=== PATIENT | male | born 1955 | race Caucasian/White ===

== ENCOUNTER 2017-09-12 21:12 | Inpatient (IN) | payer MEDICARE, OTHER ==
[2017-09-12 11:40] VITALS: BP 141/74; PULSE 98; RESP 17; TEMP 100.1; O2SAT 99
[2017-09-12] MEDS ORDERED: IOHEXOL 350 MG/ML 10 ML VIAL (for RAD DIAG) IVCONTRAST ONE (21:13)
[2017-09-12 21:32] VITALS: BP 132/73; PULSE 147; RESP 22; TEMP 100; O2SAT 94
[2017-09-12 21:44] VITALS: PULSE 119; TEMP 99
[2017-09-12] MEDS ORDERED: SODIUM CHLOR 0.9% 1000 ML INJ 1,000 ML IV SCH (21:46)
--- NOTE | 2017-09-12 21:53 | PD ---
HPI Chief Complaint: Complaint Time Seen by Provider: 21:46 Travel History International Travel<30 days: No Contact w/Intl Traveler<30days: No Traveled to known affect area: No History of Present Illness HPI This is a 62-year-old male with history of hypertension, primary care physician Dr. Avery, who presents for evaluation of abdominal pain, dysuria, urinary hesitancy, nausea, chills, fevers, myalgias. Symptoms started 3 days ago. He reports generalized crampy abdominal pain, burning sensation when he urinates, maximum temperature 103 at home. He denies any urethral discharge, testicular scrotal pain. He reports that he had constipation but today he had a watery bowel movement. He reports history of prostatitis once in the past. He is circumcised. He denies flank pain. He has no other complaints. PFSH Past Medical History Hypertension: Yes Social History Alcohol Use: No Tobacco Use: No Allergies-Medications (Allergen,Severity, Reaction): Coded Allergies: No Known Allergies (Unverified , 09/12/17) Reported Meds & Prescriptions Reported Meds & Active Scripts Active Review of Systems Except as stated in HPI: all other systems reviewed are Neg Physical Exam Narrative GENERAL: Well-developed well-nourished male in no acute distress SKIN: Warm and dry. HEAD: Atraumatic. Normocephalic. EYES: Pupils equal and round. No scleral icterus. No injection or drainage. ENT: No nasal bleeding or discharge. Mucous membranes pink and moist. NECK: Trachea midline. No JVD. CARDIOVASCULAR: Regular rate and rhythm. No murmur appreciated. RESPIRATORY: No accessory muscle use. Clear to auscultation. Breath sounds equal bilaterally. GASTROINTESTINAL: Abdomen soft, generalized mild tenderness without guarding, tenderness is worse in the lower quadrants.. Hepatic and splenic margins not palpable. examination reveals the testicles which are nontender. Rectal examination does reveal a tender prostate. MUSCULOSKELETAL: No obvious deformities. No edema. NEUROLOGICAL: Awake and alert. No obvious cranial nerve deficits. Motor grossly within normal limits. Normal speech. Data Data Last Documented VS Vital Signs Date Time Temp Pulse Resp B/P (MAP) Pulse Ox O2 Delivery O2 Flow Rate FiO2 09/12/17 21:44 99.0 119 09/12/17 21:32 22 132/73 (92) 94 Orders Orders Complete Blood Count With Diff (09/12/17 21:46) Comprehensive Metabolic Panel (09/12/17 21:46) Lipase (09/12/17 21:46) Urinalysis - C+S If Indicated (09/12/17 21:46) Ct Abd/Pel W Iv Contrast(Rout) (09/12/17 21:46) Iv Access Insert/Monitor (09/12/17 21:46) Sodium Chlor 0.9% 1000 Ml Inj (Ns 1000 M (09/12/17 21:46) Sepsis Workup Initiated (09/12/17 ) Lactic Acid Sepsis Protocol (09/12/17 21:46) Blood Culture (09/12/17 21:46) Ketorolac Inj (Toradol Inj) (09/12/17 22:00) Ondansetron Inj (Zofran Inj) (09/12/17 22:00) Electrocardiogram (09/12/17 ) Urine Culture (09/12/17 21:45) Ceftriaxone Inj (Rocephin Inj) (09/12/17 23:00) Iohexol 350 Inj (Omnipaque 350 Inj) (09/12/17 21:13) Admit Order (Ed Use Only) (09/12/17 23:32) Labs Laboratory Tests Test 09/12/17 21:45 09/12/17 21:55 Urine Color DARK-ORANGE Urine Turbidity HAZY Urine pH 6.0 Urine Specific [place] 1.020 Urine Protein 30 mg/dL Urine Glucose (UA) NEG mg/dL Urine Ketones NEG mg/dL Urine Occult Blood SMALL Urine Nitrite POS Urine Bilirubin NEG Urine Urobilinogen 2.0 MG/DL Urine Leukocyte Esterase LARGE Urine RBC 3 /hpf Urine WBC 130 /hpf Urine Bacteria MANY /hpf Urine Mucus MANY /lpf Microscopic Urinalysis Comment CULTURE INDICATED Chlamydia trachomatis DNA (PCR) NOT DETECTED Neisseria gonorrhoeae DNA (PCR) NOT DETECTED White Blood Count 16.4 TH/MM3 Red Blood Count 5.03 MIL/MM3 Hemoglobin 15.5 GM/DL Hematocrit 45.3 % Mean Corpuscular Volume 90.0 FL Mean Corpuscular Hemoglobin 30.8 PG Mean Corpuscular Hemoglobin Concent 34.2 % Red Cell Distribution Width 13.2 % Platelet Count 184 TH/MM3 Mean Platelet Volume 8.0 FL Neutrophils (%) (Auto) 89.9 % Lymphocytes (%) (Auto) 2.4 % Monocytes (%) (Auto) 7.5 % Eosinophils (%) (Auto) 0.0 % Basophils (%) (Auto) 0.2 % Neutrophils # (Auto) 14.8 TH/MM3 Lymphocytes # (Auto) 0.4 TH/MM3 Monocytes # (Auto) 1.2 TH/MM3 Eosinophils # (Auto) 0.0 TH/MM3 Basophils # (Auto) 0.0 TH/MM3 CBC Comment DIFF FINAL Differential Comment Blood Urea Nitrogen 13 MG/DL Creatinine 1.05 MG/DL Random Glucose 130 MG/DL Total Protein 7.2 GM/DL Albumin 3.6 GM/DL Calcium Level 8.5 MG/DL Alkaline Phosphatase 112 U/L Aspartate Amino Transf (AST/SGOT) 13 U/L Alanine Aminotransferase (ALT/SGPT) 26 U/L Total Bilirubin 1.6 MG/DL Sodium Level 134 MEQ/L Potassium Level 3.8 MEQ/L Chloride Level 106 MEQ/L Carbon Dioxide Level 17.9 MEQ/L Anion Gap 10 MEQ/L Estimat Glomerular Filtration Rate 72 ML/MIN Lactic Acid Level 1.4 mmol/L Lipase 127 U/L [facility] Medical Decision Making Medical Screen Exam Complete: Yes Emergency Medical Condition: Yes Medical Record Reviewed: Yes Differential Diagnosis Prostatitis, cystitis, diverticulitis, colitis, pyelonephritis Narrative Course Patient was placed on ECG monitoring pulse oximetry, 12-lead EKG was obtained, he was given IV fluids and Toradol. Lab work, blood cultures, urinalysis have been ordered. CT abdomen and pelvis has been ordered. WBC count is 16, 89.9% neutrophils. CMP reveals a GFR 72, glucose of 130, total bilirubin of 1.6, lactic acid 1.4. Urinalysis reveals positive nitrites, large leukocytes, many bacteria. 2 g of Rocephin have been ordered pending CT results. Dewayne Pandya Sep 12, 2017 21:53
[2017-09-12] MEDS ORDERED: ONDANSETRON HCL 4 MG/2 ML VIAL IV PUSH ONE (22:00)
[2017-09-12] MEDS ORDERED: KETOROLAC TROMETHAMINE 30 MG/ML (IVP) VIAL IV PUSH ONE (22:00)
[2017-09-12 22:19] LABS: AUTOMATED NEUTROPHIL # 14.8 TH/MM3 (1.8-7.7); BASOPHIL % 0.2 % (0.0-2.0); HEMATOCRIT 45.3 % (39.0-51.0); HEMOGLOBIN 15.5 GM/DL (13.0-17.0); LYMPH % 2.4 % (9.0-44.0); LYMPHOCYTE # 0.4 TH/MM3 (1.0-4.8); MEAN CORPUSCULAR HEMOGLOBIN 30.8 PG (27.0-34.0); MEAN CORPUSCULAR HGB CONC 34.2 % (32.0-36.0); MONO % 7.5 % (0.0-8.0); MONOCYTE # 1.2 TH/MM3 (0-0.9); NEUT % 89.9 % (16.0-70.0); PLATELET COUNT 184 TH/MM3 (150-450); RED BLOOD COUNT 5.03 MIL/MM3 (4.50-5.90); RED CELL DISTRIBUTION WIDTH 13.2 % (11.6-17.2); WHITE BLOOD COUNT 16.4 TH/MM3 (4.0-11.0)
[2017-09-12 22:28] LABS: BACTERIA, URINE MANY /hpf; BLOOD, URINE SMALL (NEG); GLUCOSE,URINE NEG (NEG); KETONE, URINE NEG (NEG); MUCUS URINE MANY /lpf (OCC); NITRITE,URINE POS (NEG); URINE LEUKOCYTE ESTERASE LARGE (NEG)
[2017-09-12 22:32] LABS: BILIRUBIN, URINE NEG (NEG); URINE COLOR DARK-ORANGE (YELLW/STRAW)
[2017-09-12 22:39] LABS: ALBUMIN 3.6 GM/DL (3.4-5.0); AST (GOT) 13 U/L (15-37); BICARBONATE 17.9 MEQ/L (21.0-32.0); BLOOD UREA NITROGEN 13 MG/DL (7-18); CALCIUM 8.5 MG/DL (8.5-10.1); CHLORIDE 106 MEQ/L (98-107); CREATININE 1.05 MG/DL (0.60-1.30); GLOMERULAR FILTRATION RATE 72 ML/MIN (>89); GLUCOSE,RANDOM 130 MG/DL (74-106); SODIUM (NA) 134 MEQ/L (136-145)
[2017-09-12 22:40] LABS: ALT (GPT) 26 U/L (12-78)
[2017-09-12 22:42] LABS: ALKALINE PHOSPHATASE 112 U/L (45-117); TOTAL BILIRUBIN ADULT 1.6 MG/DL (0.2-1.0); TOTAL PROTEIN 7.2 GM/DL (6.4-8.2)
[2017-09-12] MEDS ORDERED: cefTRIAXone INJ 2,000 MG in SODIUM CHLORIDE 0.9% INJ 100 ML IV ONE (23:00)
--- NOTE | 2017-09-12 23:29 | RADRPT ---
EXAM DATE/TIME: 09/12/2017 23:10 [place] COMPARISON: No previous studies available for comparison. INDICATIONS : Abdomen pain. Burning during urination. IV CONTRAST: 100 cc Omnipaque 350 (iohexol) IV ORAL CONTRAST: No oral contrast ingested. RADIATION DOSE: 10.29 CTDIvol (mGy) MEDICAL HISTORY : Hypertension. SURGICAL HISTORY : None. ENCOUNTER: Initial ACUITY: 1 week PAIN SCALE: 5/10 LOCATION: Bilateral abdomen TECHNIQUE: Volumetric scanning of the abdomen and pelvis was performed. Using automated exposure control and ad justment of the mA and/or kV according to patient size, radiation dose was kept as low as reasonably achievable to obtain optimal diagnostic quality images. DICOM format image data is available electro nically for review and comparison. FINDINGS: LOWER LUNGS: Mild bibasilar atelectasis. LIVER: Homogeneous density without concerning lesion. There is a 1 cm cyst of the dome of the right hepatic lobe. There is no dilation of the biliary tree. No calcified gallstones. SPLEEN: Normal size without lesion. PANCREAS: Within normal limits. KIDNEYS: Normal in size and shape. 23 mm right lower pole cyst. There is no solid mass, stone or hydronephrosi s. ADRENAL GLANDS: Within normal limits. VASCULAR: There is no aortic aneurysm. BOWEL/MESENTERY: The stomach, small bowel, and colon demonstrate no acute abnormality. There is no free intraperitone al air or fluid. ABDOMINAL WALL: Within normal limits. RETROPERITONEUM: There is no lymphadenopathy. BLADDER: No wall thickening or mass. REPRODUCTIVE: Mildly prominent prostate at approximately 4.9 cm. INGUINAL: There is no lymphadenopathy or hernia. MUSCULOSKELETAL: Within normal limits for patient age. CONCLUSION: 1. No acute abnormality demonstrated in the abdomen or pelvis. 2. Mildly enlarged prostate. 3. Benign-appearing cysts of the liver and right kidney. 4. Mild atelectasis of the visualized lung bases. Orestes Del Rosario MD on September 12, 2017 at 23:26 Board Certified Radiologist. This report was verified electronically.
--- NOTE | 2017-09-12 23:34 | PD ---
Data Data Last Documented VS Vital Signs Date Time Temp Pulse Resp B/P (MAP) Pulse Ox O2 Delivery O2 Flow Rate FiO2 09/12/17 21:44 99.0 119 09/12/17 21:32 22 132/73 (92) 94 Orders Orders Complete Blood Count With Diff (09/12/17 21:46) Comprehensive Metabolic Panel (09/12/17 21:46) Lipase (09/12/17 21:46) Urinalysis - C+S If Indicated (09/12/17 21:46) Ct Abd/Pel W Iv Contrast(Rout) (09/12/17 21:46) Iv Access Insert/Monitor (09/12/17 21:46) Sodium Chlor 0.9% 1000 Ml Inj (Ns 1000 M (09/12/17 21:46) Sepsis Workup Initiated (09/12/17 ) Lactic Acid Sepsis Protocol (09/12/17 21:46) Blood Culture (09/12/17 21:46) Ketorolac Inj (Toradol Inj) (09/12/17 22:00) Ondansetron Inj (Zofran Inj) (09/12/17 22:00) Electrocardiogram (09/12/17 ) Urine Culture (09/12/17 21:45) Ceftriaxone Inj (Rocephin Inj) (09/12/17 23:00) Iohexol 350 Inj (Omnipaque 350 Inj) (09/12/17 21:13) Admit Order (Ed Use Only) (09/12/17 23:32) Labs Laboratory Tests Test 09/12/17 21:45 09/12/17 21:55 Urine Color DARK-ORANGE Urine Turbidity HAZY Urine pH 6.0 Urine Specific [place] 1.020 Urine Protein 30 mg/dL Urine Glucose (UA) NEG mg/dL Urine Ketones NEG mg/dL Urine Occult Blood SMALL Urine Nitrite POS Urine Bilirubin NEG Urine Urobilinogen 2.0 MG/DL Urine Leukocyte Esterase LARGE Urine RBC 3 /hpf Urine WBC 130 /hpf Urine Bacteria MANY /hpf Urine Mucus MANY /lpf Microscopic Urinalysis Comment CULTURE INDICATED White Blood Count 16.4 TH/MM3 Red Blood Count 5.03 MIL/MM3 Hemoglobin 15.5 GM/DL Hematocrit 45.3 % Mean Corpuscular Volume 90.0 FL Mean Corpuscular Hemoglobin 30.8 PG Mean Corpuscular Hemoglobin Concent 34.2 % Red Cell Distribution Width 13.2 % Platelet Count 184 TH/MM3 Mean Platelet Volume 8.0 FL Neutrophils (%) (Auto) 89.9 % Lymphocytes (%) (Auto) 2.4 % Monocytes (%) (Auto) 7.5 % Eosinophils (%) (Auto) 0.0 % Basophils (%) (Auto) 0.2 % Neutrophils # (Auto) 14.8 TH/MM3 Lymphocytes # (Auto) 0.4 TH/MM3 Monocytes # (Auto) 1.2 TH/MM3 Eosinophils # (Auto) 0.0 TH/MM3 Basophils # (Auto) 0.0 TH/MM3 CBC Comment DIFF FINAL Differential Comment Blood Urea Nitrogen 13 MG/DL Creatinine 1.05 MG/DL Random Glucose 130 MG/DL Total Protein 7.2 GM/DL Albumin 3.6 GM/DL Calcium Level 8.5 MG/DL Alkaline Phosphatase 112 U/L Aspartate Amino Transf (AST/SGOT) 13 U/L Alanine Aminotransferase (ALT/SGPT) 26 U/L Total Bilirubin 1.6 MG/DL Sodium Level 134 MEQ/L Potassium Level 3.8 MEQ/L Chloride Level 106 MEQ/L Carbon Dioxide Level 17.9 MEQ/L Anion Gap 10 MEQ/L Estimat Glomerular Filtration Rate 72 ML/MIN Lactic Acid Level 1.4 mmol/L Lipase 127 U/L MDM Medical Record Reviewed: Yes Supervised Visit with JOSE: No Narrative Course I, Dr. Adams, have reviewed the advance practice practitioner's documentation and am in agreement, met with the patient face to face, made the diagnosis, and the medical decision making was done by me. The patient was initially evaluated by Dewayne, the physician tmd teacher assistant. Please see their complete history and physical. *My assessment and Findings: The patient presents with a history of dysuria, penile discharge, lower abdominal pain that began 3 days ago. The patient's case was initially staffed with me by Dewayne. The patient's case was then checked out to me by Dewayne at the conclusion of his shift pending CT scan of the abdomen and pelvis results. During the course of the patient's emergency department visit, the patient's history, examination, and differential diagnosis were reviewed with the patient. The patient was placed on a cardiac exercise specialist with oximetry and frequent blood pressure monitoring. The patient had IV access obtained and blood work sent for analysis. The patient had an EKG done that shows a sinus rhythm heart rate of 99, QRS duration 94 ms, QTC [address] segment elevation, T waves are inverted in V1. The patient was initially provided Toradol for pain, Zofran for nausea, normal saline 1 L IV fluid bolus. The patient's laboratory studies were reviewed and remarkable for a white count of 16.4, hemoglobin 15.5, platelets 184 with 89.9 neutrophils, CMP is remarkable for sodium of 134, CO2 17.9, glucose 130, AST 13, total bilirubin 1.6 , lactic acid 1.4, lipase 127, urinalysis shows positive nitrite large leukocyte esterase many bacteria WBCs 130 mucus many culture indicated. Radiology studies were reviewed and remarkable for CT scan of the abdomen and pelvis that showed no acute abnormality, mildly enlarged prostate, benign appearing cysts of the liver and right kidney, mild atelectasis of the visualized lung bases. The patient was given Rocephin 2 g IV. The patient will be admitted for meeting sepsis criteria with an infection thought to be related to prostatitis The patient's results were discussed with the patient, including the plan of care. I explained that further testing and/ or monitoring is indicated based on the patient's history, examination, and/ or laboratory findings. Therefore, I recommended admission for additional evaluation. The patient expressed understanding and was agreeable with this plan. The patient was admitted to the hospital in guarded condition and sent to a bed under the care of the [facility] service. Sepsis Criteria SIRS Criteria (2 or more): Heart rate over 90, WBC > 53405, < 4000 or > 10% bands Sepsis Criteria (SIRS+source): Infect source susp/known Physician Communication Physician Communication The patient's case including history, pertinent physical examination findings, and laboratory studies were discussed with Dr. Weaver. It was agreed that the patient would be admitted to the [facility] service. Diagnosis Primary Impression: Prostatitis Qualified Codes: N41.0 - Acute prostatitis Additional Impression: Sepsis Qualified Codes: A41.9 - Sepsis, unspecified organism Admitting Information Admitting Physician Requests: it Lindy Adams MD Sep 12, 2017 23:33
--- NOTE | 2017-09-13 01:13 | HHI.HP ---
[facility] Jennifer Avery MD Admission Diagnosis Prostatitis, Sepsis criteria Diagnoses: Travel History International Travel<30 Days: No Contact w/Intl Traveler <30 Da: No Traveled to Known Affected Are: No History of Present Illness 62-year-old male with a past medical history significant for hypertension, hyperlipidemia and migraines presents to the emergency department for evaluation of pain with urination. The patient reports he has had pelvic pain, fever/chills and painful urination with retention since Tuesday. He denies any nausea/vomiting/diarrhea. No chest pain or shortness of breath. No weakness/fatigue. No lateralizing signs/symptoms. Review of Systems Except as stated in HPI: all other systems reviewed are Neg Past Family Social History Past Medical History Hypertension Hyperlipidemia Migraine Past Surgical History None Allergies: Coded Allergies: No Known Allergies (Unverified , 09/12/17) Family History Negative for CAD/DM Social History Negative for alcohol, tobacco and illicit drugs. Physical Exam Vital Signs Vital Signs Date Time Temp Pulse Resp B/P (MAP) Pulse Ox O2 Delivery O2 Flow Rate FiO2 09/12/17 21:44 99.0 119 09/12/17 21:32 100.0 147 22 132/73 (92) 94 Physical Exam GENERAL: male lying in bed SKIN: No rashes, ecchymoses or lesions. Cool and dry. HEAD: Atraumatic. Normocephalic. No temporal or scalp tenderness. EYES: Pupils equal round and reactive. Extraocular motions intact. No scleral icterus. No injection or drainage. ENT: Nose without bleeding, purulent drainage or septal hematoma. Throat without erythema, tonsillar hypertrophy or exudate. Uvula midline. Airway patent. NECK: Trachea midline. No JVD or lymphadenopathy. Supple, nontender, no meningeal signs. CARDIOVASCULAR: Regular rate and rhythm without murmurs, gallops, or rubs. RESPIRATORY: Clear to auscultation. Breath sounds equal bilaterally. No wheezes , rales, or rhonchi. GASTROINTESTINAL: Abdomen soft, tender to palpation in the pelvic region, nondistended. No hepato-splenomegaly, or palpable masses. No guarding. MUSCULOSKELETAL: Extremities without clubbing, cyanosis, or edema. No joint tenderness, effusion, or edema noted. No calf tenderness. NEUROLOGICAL: Awake and alert. Cranial nerves II through XII intact. Motor and sensory grossly within normal limits. Normal speech. Laboratory Laboratory Tests Test 09/12/17 21:45 09/12/17 21:55 Urine Color DARK-ORANGE Urine Turbidity HAZY Urine pH 6.0 Urine Specific [place] 1.020 Urine Protein 30 Urine Glucose (UA) NEG Urine Ketones NEG Urine Occult Blood SMALL Urine Nitrite POS Urine Bilirubin NEG Urine Urobilinogen 2.0 Urine Leukocyte Esterase LARGE Urine RBC 3 Urine WBC 130 Urine Bacteria MANY Urine Mucus MANY Microscopic Urinalysis Comment CULTURE INDICATED White Blood Count 16.4 Red Blood Count 5.03 Hemoglobin 15.5 Hematocrit 45.3 Mean Corpuscular Volume 90.0 Mean Corpuscular Hemoglobin 30.8 Mean Corpuscular Hemoglobin Concent 34.2 Red Cell Distribution Width 13.2 Platelet Count 184 Mean Platelet Volume 8.0 Neutrophils (%) (Auto) 89.9 Lymphocytes (%) (Auto) 2.4 Monocytes (%) (Auto) 7.5 Eosinophils (%) (Auto) 0.0 Basophils (%) (Auto) 0.2 Neutrophils # (Auto) 14.8 Lymphocytes # (Auto) 0.4 Monocytes # (Auto) 1.2 Eosinophils # (Auto) 0.0 Basophils # (Auto) 0.0 CBC Comment DIFF FINAL Differential Comment Blood Urea Nitrogen 13 Creatinine 1.05 Random Glucose 130 Total Protein 7.2 Albumin 3.6 Calcium Level 8.5 Alkaline Phosphatase 112 Aspartate Amino Transf (AST/SGOT) 13 Alanine Aminotransferase (ALT/SGPT) 26 Total Bilirubin 1.6 Sodium Level 134 Potassium Level 3.8 Chloride Level 106 Carbon Dioxide Level 17.9 Anion Gap 10 Estimat Glomerular Filtration Rate 72 Lactic Acid Level 1.4 Lipase 127 Date/Time Source Procedure Growth Status 09/12/17 21:55 Blood Peripheral Aerobic Blood Culture Pending Received 09/12/17 21:55 Blood Peripheral Anaerobic Blood Culture Pending Received 09/12/17 21:45 Urine Clean Catch Urine Culture Pending Received Result Diagram: 09/12/17215409/12/172154 Caprini VTE Risk Assessment Caprini VTE Risk Assessment: Mod/High Risk (score >= 2) Caprini Risk Assessment Model Point Value = 1 Point Value = 2 Point Value = 3 Point Value = 5 Age 41-60 Minor surgery BMI > 25 kg/m2 Swollen legs Varicose veins or History of unexplained or recurrent spontaneous Oral contraceptives or hormone replacement Sepsis (< 1 month) Serious lung disease, including pneumonia (< 1 month) Abnormal pulmonary function Acute myocardial infarction Congestive heart failure (< 1 month) History of inflammatory bowel disease Medical patient at bed rest Age 61-74 Arthroscopic surgery Major open surgery (> 45 min) Laparoscopic surgery (> 45 min) Malignancy Confined to bed (> 72 hours) Immobilizing plaster cast Central venous access Age >= 75 History of VTE Family history of VTE Factor V Leiden Prothrombin [id number] Lupus anticoagulant Anticardiolipin antibodies Elevated serum homocysteine Heparin-induced thrombocytopenia Other congenital or acquired thrombophilia Stroke (< 1 month) Elective arthroplasty Hip, pelvis, or leg fracture Acute spinal cord injury (< 1 month) Prophylaxis Regimen Total Risk Factor Score Risk Level Prophylaxis Regimen 0-1 Low Early ambulation 2 Moderate Order ONE of the following: *Sequential Compression Device (SCD) *Heparin 5000 units SQ BID 3-4 Higher Order ONE of the following medications: *Heparin 5000 units SQ TID *Enoxaparin/Lovenox 40 mg SQ daily (WT < 150 kg, CrCl > 30 mL/min) *Enoxaparin/Lovenox 30 mg SQ daily (WT < 150 kg, CrCl > 10-29 mL/min) *Enoxaparin/Lovenox 30 mg SQ BID (WT < 150 kg, CrCl > 30 mL/min) AND/OR *Sequential Compression Device (SCD) 5 or more Highest Order ONE of the following medications: *Heparin 5000 units SQ TID (Preferred with Epidurals) *Enoxaparin/Lovenox 40 mg SQ daily (WT < 150 kg, CrCl > 30 mL/min) *Enoxaparin/Lovenox 30 mg SQ daily (WT < 150 kg, CrCl > 10-29 mL/min) *Enoxaparin/Lovenox 30 mg SQ BID (WT < 150 kg, CrCl > 30 mL/min) AND *Sequential Compression Device (SCD) Assessment and Plan Assessment and Plan Assessment/plan: 1. Prostatitis Patient with leukocytosis, fever and tachycardia CT of the abdomen/pelvis significant for enlarged prostate Prostate exam documented in the emergency department positive for boggy, tender prostate Rocephin IV fluids GC/chlamydia pending 2. Urinary tract infection/urinary retention Rocephin as above Retention likely secondary to prostatitis 3. Hypertension/hyperlipidemia Continue home medications once medication reconciliation complete FEN Heart heathy diet Electrolytes: monitor and replete prn Heparin NS at 100 cc/hr Physician Certification 2 Midnight Certification Type: Admission for Inpatient Services Order for Inpatient Services The services are ordered in accordance with Medicare regulations or non- Medicare payer requirements, as applicable. In the case of services not specified as inpatient-only, they are appropriately provided as inpatient services in accordance with the 2-midnight benchmark. Estimated LOS (days): 2 2 days is the estimated time the patient will need to remain in the hospital, assuming treatment plan goals are met and no additional complications. Post-Hospital Plan: Not yet determined Valery Weaver MD Sep 13, 2017 01:13
[2017-09-13] MEDS ORDERED: ACETAMINOPHEN 325 MG TAB PO PRN (01:15)
[2017-09-13] MEDS ORDERED: MAGNESIUM HYDROXIDE SUSP 30 ML CUP PO PRN (01:15)
[2017-09-13] MEDS ORDERED: SENNOSIDES 8.6 MG TAB PO PRN (01:15)
[2017-09-13] MEDS ORDERED: NALOXONE HCL 0.4 MG/ML AMP IV PUSH PRN (01:15)
[2017-09-13] MEDS ORDERED: BISACODYL 10 MG SUPP RECTAL PRN (01:15)
[2017-09-13] MEDS ORDERED: SODIUM CHLORIDE 0.9% FLUSH 10 ML FLUSH IV FLUSH PRN (01:15)
[2017-09-13] MEDS ORDERED: LACTULOSE SYRUP 20 GM/30 ML CUP PO PRN (01:15)
[2017-09-13] MEDS: SODIUM CHLOR 0.9% 1000 ML INJ 1,000 ML IV SCH ×3 (01:32→21:07)
[2017-09-13] MEDS: HEPARIN SODIUM - SQ 10,000 UNITS/ML VIAL SQ SCH ×2 (01:33→15:41)
[2017-09-13 03:00] VITALS: BP 136/64; PULSE 97; RESP 16; TEMP 97.9; O2SAT 98
[2017-09-13] MEDS ORDERED: IMIT100T PO (06:08)
[2017-09-13] MEDS ORDERED: LIPI10TA PO (06:08)
[2017-09-13] MEDS ORDERED: TOPA50TA7 PO (06:08)
[2017-09-13] MEDS ORDERED: OMEP10CA PO (09:10)
[2017-09-13] MEDS ORDERED: LOSA25TA PO (09:10)
[2017-09-13] MEDS: SODIUM CHLORIDE 0.9% FLUSH 10 ML FLUSH IV FLUSH SCH ×2 (09:18→21:06)
[2017-09-13] MEDS: DOCUSATE SODIUM 50 MG/SENNA 8.6 MG TAB PO SCH ×2 (09:18→21:05)
[2017-09-13 09:40] VITALS: BP 138/85; PULSE 80; RESP 18; TEMP 97.7; O2SAT 97
[2017-09-13] MEDS: TOPIRAMATE 25 MG TAB PO SCH ×2 (10:54→21:05)
[2017-09-13] MEDS ORDERED: SUMAtriptan SUCCINATE 50 MG TAB PO ONE (11:00)
[2017-09-13 12:00] VITALS: BP 141/74; PULSE 98; RESP 17; TEMP 97.3; O2SAT 99
--- NOTE | 2017-09-13 15:31 | EKG ---
Date Performed: 09/12/2017 Time Performed: 22:06:36 PTAGE: 62 years EKG: Sinus rhythm NORMAL ECG NO PREVIOUS TRACING DOCTOR: Yassine Baird Interpretating Date/Time 09/13/2017 15:23:03
[2017-09-13 15:35] VITALS: BP 112/69; PULSE 87; RESP 17; TEMP 98.3; O2SAT 100
--- NOTE | 2017-09-13 18:22 | HHI.PR ---
Addendum To [facility] Progress Not Reason for addendum: Additonal documentation (Feeling rotten but he is voiding advised op f/u. Jorge RN to monitor for retention) Arvind Lewis MD Sep 13, 2017 18:22
[2017-09-13] MEDS: MORPHINE SULFATE 2 MG/ML SYRINGE IV PUSH PRN ×2 (19:33→22:46)
[2017-09-13 21:00] VITALS: BP 128/79; PULSE 97; RESP 18; TEMP 98.3; O2SAT 94
[2017-09-13] MEDS: ATORVASTATIN 10 MG TAB PO SCH (21:05)
[2017-09-13] MEDS: cefTRIAXone INJ 2,000 MG in SODIUM CHLORIDE 0.9% INJ 100 ML IV SCH (22:47)
[2017-09-13 23:59] VITALS: BP 125/67; PULSE 88; RESP 18; TEMP 98.1; O2SAT 95
[2017-09-14] MEDS: HEPARIN SODIUM - SQ 10,000 UNITS/ML VIAL SQ SCH ×2 (00:40→13:15)
[2017-09-14] MEDS: SODIUM CHLOR 0.9% 1000 ML INJ 1,000 ML IV SCH ×2 (03:55→16:53)
[2017-09-14] MEDS: SUMAtriptan SUCCINATE 50 MG TAB PO PRN ×2 (03:55→23:54)
[2017-09-14] MEDS: ONDANSETRON HCL 4 MG/2 ML VIAL IVP PRN ×3 (03:57→23:56)
[2017-09-14 05:30] VITALS: BP 128/69; PULSE 80; RESP 17; TEMP 97.3; O2SAT 98
[2017-09-14 08:45] VITALS: BP 115/72; PULSE 74; RESP 20; TEMP 100.3; O2SAT 94
[2017-09-14] MEDS: SODIUM CHLORIDE 0.9% FLUSH 10 ML FLUSH IV FLUSH SCH ×2 (09:00→21:00)
[2017-09-14 09:09] LABS: AUTOMATED NEUTROPHIL # 4.9 TH/MM3 (1.8-7.7); BASOPHIL % 0.4 % (0.0-2.0); EOSINOPHIL % 0.1 % (0.0-4.0); HEMOGLOBIN 13.8 GM/DL (13.0-17.0); LYMPH % 9.5 % (9.0-44.0); LYMPHOCYTE # 0.6 TH/MM3 (1.0-4.8); MEAN CELL VOLUME 90.5 FL (80.0-100.0); MEAN CORPUSCULAR HEMOGLOBIN 31.1 PG (27.0-34.0); MEAN CORPUSCULAR HGB CONC 34.4 % (32.0-36.0); MEAN PLATELET VOLUME 8.3 FL (7.0-11.0); MONO % 9.1 % (0.0-8.0); MONOCYTE # 0.5 TH/MM3 (0-0.9); NEUT % 80.9 % (16.0-70.0); PLATELET COUNT 143 TH/MM3 (150-450); RED BLOOD COUNT 4.42 MIL/MM3 (4.50-5.90); RED CELL DISTRIBUTION WIDTH 13.1 % (11.6-17.2)
[2017-09-14] MEDS: LOSARTAN 25 MG TAB PO SCH (09:20)
[2017-09-14] MEDS: TOPIRAMATE 25 MG TAB PO SCH ×2 (09:20→21:06)
[2017-09-14] MEDS: DOCUSATE SODIUM 50 MG/SENNA 8.6 MG TAB PO SCH ×2 (09:20→21:07)
[2017-09-14] MEDS: PANTOPRAZOLE SOD 20 MG DELAYED RELEASE TAB PO SCH (09:20)
[2017-09-14 09:37] LABS: BICARBONATE 20.3 MEQ/L (21.0-32.0); CALCIUM 7.8 MG/DL (8.5-10.1); CREATININE 0.87 MG/DL (0.60-1.30)
[2017-09-14 12:01] VITALS: BP 119/73; PULSE 73; RESP 20; TEMP 98.4; O2SAT 96
--- NOTE | 2017-09-14 15:23 | HHI.PR ---
Subjective Remarks Patient denied fever or chills, stated he is urinating better Reported pain in his stomach with increased flatus and positive tympany on abdominal exam Objective Vitals Vital Signs Date Time Temp Pulse Resp B/P (MAP) Pulse Ox O2 Delivery O2 Flow Rate FiO2 09/14/17 12:01 98.4 73 20 119/73 (88) 96 09/14/17 08:45 100.3 74 20 115/72 (86) 94 09/14/17 05:30 97.3 80 17 128/69 (88) 98 09/13/17 23:59 98.1 88 18 125/67 (86) 95 09/13/17 21:00 98.3 97 18 128/79 (95) 94 09/13/17 15:35 98.3 87 17 112/69 (83) 100 I/O 09/13/17 09/13/17 09/13/17 09/14/17 09/14/17 09/14/17 06:59 14:59 22:59 06:59 14:59 22:59 Intake Total 1500 ml 1773 ml Output Total 0 ml Balance 1500 ml 1773 ml Intake Oral 500 ml 700 ml IV Total 1000 ml 1073 ml Output Urine Total 0 ml Bladder Scan Volume Amount 37 ml 0 ml # Voids 2 2 # Bowel Movements 0 0 Result Diagram: 09/14/[id number] Objective Remarks GENERAL: This is a well-nourished, well-developed patient, in no apparent distress. SKIN: No rashes, warm and dry HEAD: Atraumatic. Normocephalic. EYES: Pupils equal round and reactive. Extraocular motions intact. No scleral icterus. ENT: Nose without bleeding, or drainage, Airway patent. NECK: Trachea midline. Supple CARDIOVASCULAR: Regular rate and rhythm without murmurs, gallops, or rubs. RESPIRATORY: Fair air entry bilaterally. No wheezes, rales, or rhonchi. GASTROINTESTINAL: Abdomen soft, mild tenderness along the transverse colon positive tympany. Positive bowel sounds MUSCULOSKELETAL: Extremities without clubbing, cyanosis, or edema. Pedal pulses appreciated NEUROLOGICAL: Awake and alert. Moves all extremity. Normal speech.no focal neurological deficit A/P Assessment and Plan 1. Prostatitis Patient with leukocytosis, fever and tachycardia CT of the abdomen/pelvis significant for enlarged prostate Prostate exam documented in the emergency department positive for boggy, tender prostate Rocephin IV fluids GC/chlamydia negative We will consult urology to establish further follow-up post discharge 2. Urinary tract infection/urinary retention Rocephin as above Retention likely secondary to prostatitis 3. Hypertension/hyperlipidemia Continue home medications once medication reconciliation complete FEN Heart heathy diet Electrolytes: monitor and replete prn Heparin NS at 100 cc/hr Discharge Planning After seen by urology Palma Lundberg MD Sep 14, 2017 15:23
[2017-09-14 16:08] VITALS: BP 120/78; PULSE 71; RESP 20; TEMP 101.6; O2SAT 96
[2017-09-14 20:29] VITALS: BP 121/77; PULSE 57; RESP 18; TEMP 98.1; O2SAT 97
[2017-09-14] MEDS: ATORVASTATIN 10 MG TAB PO SCH (21:06)
[2017-09-14] MEDS: cefTRIAXone INJ 2,000 MG in SODIUM CHLORIDE 0.9% INJ 100 ML IV SCH (22:27)
[2017-09-15] VITALS: BP 138/86; PULSE 70; RESP 19; TEMP 98.8; O2SAT 98
[2017-09-15] MEDS: HEPARIN SODIUM - SQ 10,000 UNITS/ML VIAL SQ SCH ×2 (01:15→13:15)
[2017-09-15] MEDS: SODIUM CHLOR 0.9% 1000 ML INJ 1,000 ML IV SCH ×3 (03:06→22:16)
[2017-09-15] MEDS: ONDANSETRON HCL 4 MG/2 ML VIAL IVP PRN ×2 (06:07→22:11)
[2017-09-15 06:32] VITALS: BP 142/87; PULSE 70; RESP 18; TEMP 99.1; O2SAT 98
[2017-09-15 08:02] VITALS: BP 135/87; PULSE 71; RESP 20; TEMP 100.2; O2SAT 95
[2017-09-15] MEDS: PANTOPRAZOLE SOD 20 MG DELAYED RELEASE TAB PO SCH (08:28)
[2017-09-15] MEDS: TOPIRAMATE 25 MG TAB PO SCH ×2 (08:28→22:06)
[2017-09-15] MEDS: LOSARTAN 25 MG TAB PO SCH (08:28)
[2017-09-15] MEDS: DOCUSATE SODIUM 50 MG/SENNA 8.6 MG TAB PO SCH ×2 (08:28→21:00)
[2017-09-15] MEDS: SUMAtriptan SUCCINATE 50 MG TAB PO PRN ×2 (08:29→11:28)
[2017-09-15] MEDS: SODIUM CHLORIDE 0.9% FLUSH 10 ML FLUSH IV FLUSH SCH ×2 (08:31→21:00)
[2017-09-15 09:42] LABS: HEMATOCRIT 40.6 % (39.0-51.0); HEMOGLOBIN 13.8 GM/DL (13.0-17.0); MEAN CELL VOLUME 91.3 FL (80.0-100.0); MEAN CORPUSCULAR HEMOGLOBIN 31.1 PG (27.0-34.0); MEAN CORPUSCULAR HGB CONC 34.1 % (32.0-36.0); PLATELET COUNT 152 TH/MM3 (150-450); RED BLOOD COUNT 4.45 MIL/MM3 (4.50-5.90); RED CELL DISTRIBUTION WIDTH 12.9 % (11.6-17.2); WHITE BLOOD COUNT 4.8 TH/MM3 (4.0-11.0)
[2017-09-15 10:52] LABS: BANDS 17 % (0-6); LYMPHOCYTES 14 % (9-44); MONOCYTES 9 % (0-8); NEUTROPHIL # MANUAL DIFF 3.7 TH/MM3 (1.8-7.7); POLYS (SEG NEUTROPHILS) 60 % (16-70)
[2017-09-15 10:53] LABS: BURR CELLS 1+ (NORMAL)
--- NOTE | 2017-09-15 11:26 | MB ---
cc: Wilfredo Sutherland DO DATE: 09/15/2017 HISTORY OF PRESENT ILLNESS: This is a pleasant 62-year-old male who presented to the emergency room the other day with complaints of lower abdominal pain over the bladder region with some difficulty urinating associated with fever and chills. Upon the ER evaluation, it was determined that the patient had a tender prostate and was diagnosed with prostatitis. The patient admits to a history of prostatitis cystitis approximately 10 years ago. He does have a weak stream at times, but notes nocturia only 0 to 1 times. He denies any recent urinary tract infections. His urine culture on admission did show evidence of Escherichia coli. He denies any gross hematuria or a history of stones. He denies any sexually transmitted diseases. PAST MEDICAL HISTORY: Noted for hypertension, hyperlipidemia and migraines. He also has some visual difficulties. PAST SURGICAL HISTORY: He has no past surgical history. ALLERGIES: HE HAS NO KNOWN DRUG ALLERGIES. FAMILY HISTORY: Unknown due to his adoption. SOCIAL HISTORY: Denies smoking, drinking or using drugs. REVIEW OF SYSTEMS: Notes lower abdominal pain, some dysuria with difficulty with urination at present. Fevers and chills are noted. Denies gross hematuria or stones. Does note a weak stream. Denies chest pain or shortness of breath. Notes lower abdominal pain. Notes some diarrhea with his last bowel movement on Tuesday. Denies psychiatric problems. Denies bleeding disorders, gait disturbances or neurologic problems. The remaining review of systems were reviewed and were negative. PHYSICAL EXAMINATION: VITAL SIGNS: Temperature is 100.2 degrees, heart rate 71, respiratory rate 20, 135/87. GENERAL: He is a well-developed, well-nourished, 62-year-old male in no acute distress. HEENT: Normocephalic, atraumatic. Pupils equal, round, regular, reactive to light. Extraocular movements intact. NECK: Supple. HEART: Regular rate and rhythm. LUNGS: Clear. ABDOMEN: Soft. There is minimal suprapubic tenderness noted. Normal phallus. Testes are descended. They are nontender. There is no perineal tenderness. RECTAL: Exam shows a slightly tender prostate 40 grams on exam. There are no nodules palpated. EXTREMITIES: Show no evidence of cyanosis, clubbing, or edema. NEUROLOGIC: Cranial nerves 2-12 are intact. SKIN: There are no lesions. LABORATORY DATA: His white count today is 4.8, hemoglobin 13.8, hematocrit 40.6, platelet count of 152. Sodium 138, potassium 3.8, chloride 109, CO2 20.3, BUN of 12, creatinine 0.87, glucose of 90. Urinalysis showed positive nitrite, large leukocyte esterase, 130 white cells, 3 red cells. Again, urine culture shows Escherichia coli with blood cultures, no growth after 2 days. IMAGING STUDIES: Imaging study of the abdomen and pelvis showed no acute abnormality. Mildly enlarged prostate. ASSESSMENT: This is a 62-year-old male with Escherichia coli urinary tract infection and prostatitis. PLAN: Continue antibiotics. Continue to monitor voiding for now and recommend starting Flomax 0.4 mg p.o. at bedtime to help his weak stream. We will follow with you and thank you very much for the consult. DO MICHELLE Bethea , 10:47 AM , 11:25 AM
[2017-09-15 11:34] VITALS: BP 144/90; PULSE 63; RESP 20; TEMP 98.7; O2SAT 96
[2017-09-15] MEDS: MORPHINE SULFATE 2 MG/ML SYRINGE IV PUSH PRN ×2 (13:15→22:11)
[2017-09-15 16:30] VITALS: BP 123/80; PULSE 57; RESP 20; TEMP 97.9; O2SAT 98
--- NOTE | 2017-09-15 19:41 | HHI.PR ---
Subjective Remarks UTI patient reported feeling better no fever or chills, urinating okay Objective Vitals Vital Signs Date Time Temp Pulse Resp B/P (MAP) Pulse Ox O2 Delivery O2 Flow Rate FiO2 09/15/17 16:30 97.9 57 20 123/80 (94) 98 09/15/17 11:34 98.7 63 20 144/90 (108) 96 09/15/17 08:02 100.2 71 20 135/87 (103) 95 09/15/17 06:32 99.1 70 18 142/87 (105) 98 09/15/17 00:00 98.8 70 19 138/86 (103) 98 09/14/17 20:29 98.1 57 18 121/77 (92) 97 I/O 09/14/17 09/14/17 09/14/17 09/15/17 09/15/17 09/15/17 07:00 15:00 23:00 07:00 15:00 23:00 Intake Total 1773 ml 1422 ml 844 ml 778 ml 600 ml Output Total 500 ml Balance 1773 ml 922 ml 844 ml 778 ml 600 ml Intake Oral 700 ml 600 ml IV Total 1073 ml 1422 ml 844 ml 778 ml Output Urine Total 500 ml Bladder Scan Volume Amount 0 ml # Voids 2 3 # Bowel Movements 0 1 Result Diagram: 09/15/17 0702 09/14/17 0823 Objective Remarks GENERAL: This is a well-nourished, well-developed patient, in no apparent distress. SKIN: No rashes, warm and dry HEAD: Atraumatic. Normocephalic. EYES: Pupils equal round and reactive. Extraocular motions intact. No scleral icterus. ENT: Nose without bleeding, or drainage, Airway patent. NECK: Trachea midline. Supple CARDIOVASCULAR: Regular rate and rhythm without murmurs, gallops, or rubs. RESPIRATORY: Fair air entry bilaterally. No wheezes, rales, or rhonchi. GASTROINTESTINAL: Abdomen soft, mild tenderness along the transverse colon positive tympany. Positive bowel sounds MUSCULOSKELETAL: Extremities without clubbing, cyanosis, or edema. Pedal pulses appreciated NEUROLOGICAL: Awake and alert. Moves all extremity. Normal speech.no focal neurological deficit A/P Assessment and Plan 1. Prostatitis Patient with leukocytosis, fever and tachycardia CT of the abdomen/pelvis significant for enlarged prostate Prostate exam documented in the emergency department positive for boggy, tender prostate Rocephin IV fluids GC/chlamydia negative Appreciate urology consultation recommended Flomax and continue antibiotic, I discussed with Dr. Keagan Sutherland who agreed on discharge with antibiotic for 4-6 weeks to follow-up with him as an outpatient 2. Urinary tract infection/urinary retention Rocephin as above Retention likely secondary to prostatitis 3. Hypertension/hyperlipidemia Continue home medications once medication reconciliation complete FEN Heart heathy diet Electrolytes: monitor and replete prn Heparin NS at 100 cc/hr Discharge Planning Later today after seen by urology Addendum: Cleared by urology Palma Lundberg MD Sep 15, 2017 19:41
[2017-09-15 20:00] VITALS: BP 107/66; PULSE 66; RESP 18; TEMP 97.1; O2SAT 97
[2017-09-15] MEDS: ATORVASTATIN 10 MG TAB PO SCH (22:07)
[2017-09-15] MEDS: cefTRIAXone INJ 2,000 MG in SODIUM CHLORIDE 0.9% INJ 100 ML IV SCH (22:11)
[2017-09-16] VITALS: BP 120/70; PULSE 70; RESP 18; TEMP 98.5; O2SAT 98
[2017-09-16] MEDS: HEPARIN SODIUM - SQ 10,000 UNITS/ML VIAL SQ SCH ×2 (01:15→13:15)
[2017-09-16 05:00] VITALS: BP 130/79; PULSE 80; RESP 18; TEMP 98.1; O2SAT 99
[2017-09-16] MEDS: ONDANSETRON HCL 4 MG/2 ML VIAL IVP PRN (05:12)
[2017-09-16] MEDS: SUMAtriptan SUCCINATE 50 MG TAB PO PRN (05:12)
[2017-09-16 08:00] VITALS: BP 133/66; PULSE 58; RESP 20; TEMP 97.6; O2SAT 97
[2017-09-16] MEDS: SODIUM CHLOR 0.9% 1000 ML INJ 1,000 ML IV SCH (08:45)
[2017-09-16] MEDS: TOPIRAMATE 25 MG TAB PO SCH (08:47)
[2017-09-16] MEDS: SODIUM CHLORIDE 0.9% FLUSH 10 ML FLUSH IV FLUSH SCH (08:47)
[2017-09-16] MEDS: PANTOPRAZOLE SOD 20 MG DELAYED RELEASE TAB PO SCH (08:47)
[2017-09-16] MEDS: LOSARTAN 25 MG TAB PO SCH (08:47)
[2017-09-16] MEDS: DOCUSATE SODIUM 50 MG/SENNA 8.6 MG TAB PO SCH (08:47)
[2017-09-16 12:00] VITALS: BP 118/74; PULSE 55; RESP 17; TEMP 97.5; O2SAT 97
--- NOTE | 2017-09-16 14:04 | HHI.DS ---
Discharge Summary Admission Date Sep 12, 2017 at 23:34 Discharge Date: Sep 16, 2017 Admitting Diagnosis Prostatitis, Sepsis criteria (1) Prostatitis ICD Code: N41.9 - Inflammatory disease of prostate, unspecified (2) UTI (urinary tract infection) ICD Code: N39.0 - Urinary tract infection, site not specified Procedures See below Brief History - From Admission 62-year-old male with a past medical history significant for hypertension, hyperlipidemia and migraines presents to the emergency department for evaluation of pain with urination. The patient reports he has had pelvic pain, fever/chills and painful urination with retention since Tuesday. He denies any nausea/vomiting/diarrhea. No chest pain or shortness of breath. No weakness/fatigue. No lateralizing signs/symptoms. CBC/BMP: 09/15/17 0702 09/14/17 0823 Significant Findings Laboratory Tests Test 09/14/17 08:23 09/15/17 07:02 Red Blood Count 4.42 MIL/MM3 (4.50-5.90) 4.45 MIL/MM3 (4.50-5.90) Platelet Count 143 TH/MM3 (150-450) Neutrophils (%) (Auto) 80.9 % (16.0-70.0) Monocytes (%) (Auto) 9.1 % (0.0-8.0) Lymphocytes # (Auto) 0.6 TH/MM3 (1.0-4.8) Calcium Level 7.8 MG/DL (8.5-10.1) Chloride Level 109 MEQ/L (98-107) Carbon Dioxide Level 20.3 MEQ/L (21.0-32.0) Band Neutrophils % 17 % (0-6) Monocytes % 9 % (0-8) Dharmesh Cells 1+ (NORMAL) PE at Discharge GENERAL: This is a well-nourished, well-developed patient, in no apparent distress. SKIN: No rashes, warm and dry HEAD: Atraumatic. Normocephalic. EYES: Pupils equal round and reactive. Extraocular motions intact. No scleral icterus. ENT: Nose without bleeding, or drainage, Airway patent. NECK: Trachea midline. Supple CARDIOVASCULAR: Regular rate and rhythm without murmurs, gallops, or rubs. RESPIRATORY: Fair air entry bilaterally. No wheezes, rales, or rhonchi. GASTROINTESTINAL: Abdomen soft, mild tenderness along the transverse colon positive tympany. Positive bowel sounds MUSCULOSKELETAL: Extremities without clubbing, cyanosis, or edema. Pedal pulses appreciated NEUROLOGICAL: Awake and alert. Moves all extremity. Normal speech.no focal neurological deficit Hospital Course 62 years old male admitted with UTI prostatitis started on IV antibiotic, urology consult, Flomax started, patient to follow-up as an outpatient with urologist Pt Condition on Discharge: Fair Discharge Disposition: Discharge Home Discharge Time: <= 30 minutes Discharge Instructions DIET: Follow Instructions for: Heart Healthy Diet Activities you can perform: Weight Bearing as Jen Follow up Referrals: Urology - 1 Week with Wilfredo Sutherland DO New Medications: Ciprofloxacin (Cipro) 500 Mg Tab 500 MG PO BID for Infection for 28 Days, #56 TAB 0 Refills Tamsulosin (Flomax) 0.4 Mg Cap 0.4 MG PO HS for Manage Prostate Problems, #30 CAP 0 Refills Continued Medications: Atorvastatin (Lipitor) 10 Mg Tab 10 MG PO HS for Cholesterol Management, #30 TAB 0 Refills Losartan (Losartan) 25 Mg Tab 25 MG PO DAILY for Blood Pressure Management, #30 TAB 0 Refills Omeprazole (Omeprazole) 10 Mg Cap 10 MG PO DAILY, #30 CAP 0 Refills Sumatriptan (Imitrex) 100 Mg Tab 100 MG PO ONCE PRN for MIGRAINE HEADACHE, TAB 0 Refills If a satisfactory response has not been obtained at 2 hours, a second dose may be administered Topiramate (Topamax) 50 Mg Tab 50 MG PO BID for Control Seizures, #60 TAB 0 Refills Palma Lundberg MD Sep 16, 2017 14:04
[2017-09-16] MEDS ORDERED: TAMS5CAP PO (14:15)
[2017-09-16] MEDS ORDERED: CIPR-9 PO (14:15)
--- NOTE | 2017-09-16 15:24 | HHI.PR ---
Subjective Patient symptoms today Pt seen and examined. Voiding well at present. Objective Vital Signs Vital Signs Date Time Temp Pulse Resp B/P (MAP) Pulse Ox O2 Delivery O2 Flow Rate FiO2 09/16/17 12:00 97.5 55 17 118/74 (89) 97 09/16/17 08:00 97.6 58 20 133/66 (88) 97 09/16/17 05:00 98.1 80 18 130/79 (96) 99 09/16/17 00:00 98.5 70 18 120/70 (87) 98 09/15/17 20:00 97.1 66 18 107/66 (80) 97 09/15/17 16:30 97.9 57 20 123/80 (94) 98 Intake & Output 09/16/17 09/16/17 07:00 19:00 Intake Total 1744 ml 970 ml Balance 1744 ml 970 ml IV Total 1744 ml 970 ml # Voids 3 Result Diagram: 09/15/17 0702 09/14/17 0823 Objective Remarks Abd:soft,nt,nd Voiding well. Medications and IVs Current Medications Medications (Trade) Dose Ordered Sig/Misael Route Start Time Stop Time Status Last Admin Ceftriaxone Sodium 2000 mg/ Sodium Chloride 100 ml @ 200 mls/hr Q24H IV 09/13/17 23:00 09/15/17 22:11 (Morphine Inj) 2 mg Q3H PRN IV PUSH 09/13/17 01:15 09/15/17 22:11 Sodium Chloride 1,000 ml @ 100 mls/hr Q10H IV 09/13/17 01:06 09/16/17 08:45 (NS Flush) 2 ml UNSCH PRN IV FLUSH 09/13/17 01:15 09/13/17 10:54 (NS Flush) 2 ml BID IV FLUSH 09/13/17 09:00 (Tylenol) 650 mg Q4H PRN PO 09/13/17 01:15 09/14/17 15:23 (Zofran Inj) 4 mg Q6H PRN IVP 09/13/17 01:15 09/16/17 05:12 (Heparin Inj) 5,000 units Q12H SQ 09/13/17 01:15 09/13/17 15:41 (Narcan Inj) 0.4 mg UNSCH PRN IV PUSH 09/13/17 01:15 (Lisbeth-Colace) 1 tab BID PO 09/13/17 09:00 09/16/17 08:47 (Milk Of Magnesia Liq) 30 ml Q12H PRN PO 09/13/17 01:15 (Senokot) 17.2 mg Q12H PRN PO 09/13/17 01:15 (Dulcolax Supp) 10 mg DAILY PRN RECTAL 09/13/17 01:15 (Lactulose Liq) 30 ml DAILY PRN PO 09/13/17 01:15 (Lipitor) 10 mg HS PO 09/13/17 21:00 09/15/17 22:07 (Cozaar) 25 mg DAILY PO 09/14/17 09:00 09/16/17 08:47 (Topamax) 50 mg BID PO 09/13/17 10:00 09/16/17 08:47 (Protonix) 20 mg DAILY PO 09/14/17 09:00 09/16/17 08:47 (Imitrex) 100 mg DAILY PRN PO 09/14/17 00:45 09/16/17 05:12 Assessment and Plan Assessment and Plan 62 y.o male with E. Coli UTI and prostatitis. D/C home with ABX and Flomax F/U in office in 4-6 weeks. Wilfredo Sutherland DO Sep 16, 2017 15:24
== END 2017-09-16 16:00 | disposition home or self-care (01) | DRG 728 ==
LOC: NEPC 21:12 → NEDA 23:34 → NEDH 09-13 05:04 → N05B 09-13 18:11
PROVIDERS: ADMIT Hospitalist; ATTEND Hospitalist
DX: N41.0 Acute prostatitis (principal); K76.89 Other specified diseases of liver; N28.1 Cyst of kidney, acquired; N39.0 Urinary tract infection, site not specified; I10 Essential (primary) hypertension; E78.5 Hyperlipidemia, unspecified; B96.20 Unspecified Escherichia coli [E. coli] as the cause of diseases classified elsewhere
CPT/HCPCS: 74177; 80048; 80053; 81001; 83605; 83690; 85007; 85025; 85027; 87040; 87077; 87086; 87186; 87491; 87591; 93005; 96361; 96374; 96375; J0696; J1644; J1885; J2270; J2405; J7030; Q9967